=== PATIENT | female | born 1940 | race Caucasian/White ===

== ENCOUNTER 2025-01-15 11:17 | Outpatient (CLI) | payer MEDICARE | END 2025-01-15 11:18 | disposition home or self-care (01) | LOC: CSHLAB 11:17 | PROVIDERS: ATTEND Surgery | DX: Z01.810 Encounter for preprocedural cardiovascular examination (principal); C53.9 Malignant neoplasm of cervix uteri, unspecified | CPT/HCPCS: 93005; 93010 ==